=== PATIENT | female | born 1955 | race Caucasian/White ===

== ENCOUNTER 2023-02-08 09:58 | Day surgery (SDC) | payer MEDICARE, BC ==
[~2023-02-08] VITALS: Ht 165.1 cm; Wt 105.5 kg
[~2023-02-08 09:58] MED LIST: CETI10CH PO; IBUP-1114 PO; IRON27TA2 PO; OMEP-173 PO; VITA100093 PO; VITA50TA43 PO; ceFAZolin SOD 2 GM in IV 1 EA IV ONE
[2023-02-08] MEDS ORDERED: LR 1,000 ML IV SCH ×2 (10:05→13:35)
[2023-02-08] MEDS ORDERED: fentaNYL 100 MCG/2 ML INJECTION As Ordered ONE ×2 (11:52→12:52)
[2023-02-08] MEDS ORDERED: LIDOCAINE 2% 100MG/5ML SDV (FOR ANES.) As Ordered ONE (11:53)
[2023-02-08] MEDS ORDERED: propofoL 200 MG/20 ML VIAL As Ordered ONE (11:53)
[2023-02-08] MEDS ORDERED: MIDAZOLAM INJ 2MG/2ML VIAL As Ordered ONE (11:53)
[2023-02-08] MEDS ORDERED: ONDANSETRON 4MG 2ML VIAL As Ordered ONE (11:54)
[2023-02-08] MEDS ORDERED: ROCURONIUM BROMIDE 50MG/5ML VIAL As Ordered ONE ×2 (11:54→13:04)
[2023-02-08] MEDS ORDERED: LABETALOL 100MG/20ML VIAL As Ordered ONE (12:56)
[2023-02-08] MEDS ORDERED: SUGAMMADEX SODIUM 500 MG/5 ML VIAL (BRIDION) As Ordered ONE (13:10)
[2023-02-08] MEDS ORDERED: ONDANSETRON 4MG 2ML VIAL IV PRN (13:35)
[2023-02-08] MEDS ORDERED: fentaNYL 100 MCG/2 ML INJECTION IV PRN (13:35)
[2023-02-08] MEDS ORDERED: oxyCODONE 5MG TAB PO PRN (13:35)
[2023-02-08] MEDS: HYDROMORPHONE HCL 0.5 MG/ 0.5 ML SYRINGE IV PRN ×3 (13:49→14:03)
[2023-02-08] MEDS ORDERED: NORCO, ANEXSIA 5/325MG TABLET (HYDROcodone/ACETAMINOPHEN) PO PRN (14:00)
[2023-02-08 16:41] VITALS: BP 125/63; TEMP 97.6; O2SAT 96
== END 2023-02-08 16:41 | disposition home or self-care (01) ==
LOC: M OPP 09:58 → M SDC 09:58 → M OPP 16:41
PROVIDERS: ATTEND Surgery
DX: K42.9 Umbilical hernia without obstruction or gangrene (principal); K21.9 Gastro-esophageal reflux disease without esophagitis; Z79.899 Other long term (current) drug therapy; Z88.8 Allergy status to other drugs, medicaments and biological substances
CPT/HCPCS: 49615; C1781; J0665; J1100; J1170; J1920; J2250; J2405; J3010

== ENCOUNTER → 2023-04-01 | Outpatient (REF) | payer MEDICARE, BC ==
[~2023-04-01] MED LIST changes: -ceFAZolin SOD 2 GM in IV 1 EA IV ONE
== END ==
LOC: M LAB REF 08:39
PROVIDERS: ATTEND Surgery
DX: D18.01 Hemangioma of skin and subcutaneous tissue (principal)

== ENCOUNTER 2023-05-29 06:45 | Day surgery (SDC) | payer MEDICARE, BC ==
[~2023-05-29] VITALS: Ht 165.1 cm; Wt 103.0 kg
[~2023-05-29 06:45] MED LIST changes: +PANT20TA6 PO
[2023-05-29] MEDS: NS 1,000 ML IV ONE (07:16)
[2023-05-29] MEDS ORDERED: LIDOCAINE 2% 100MG/5ML SDV (FOR ANES.) As Ordered ONE (07:33)
[2023-05-29] MEDS ORDERED: propofoL 200 MG/20 ML VIAL As Ordered ONE (07:33)
[2023-05-29 07:55] VITALS: TEMP 96.8
[2023-05-29 08:19] VITALS: BP 122/59; O2SAT 98
== END 2023-05-29 08:23 | disposition home or self-care (01) ==
LOC: M OPP 06:45
PROVIDERS: ATTEND Surgery
DX: Z12.11 Encounter for screening for malignant neoplasm of colon (principal); Z80.0 Family history of malignant neoplasm of digestive organs; K64.1 Second degree hemorrhoids; Z79.1 Long term (current) use of non-steroidal anti-inflammatories (NSAID); Z79.899 Other long term (current) drug therapy; Z88.8 Allergy status to other drugs, medicaments and biological substances; Z91.040 Latex allergy status; Z98.84 Bariatric surgery status